=== PATIENT | male | born 1995 | race Caucasian/White ===

== ENCOUNTER 2019-12-01 11:47 | Emergency (ER) | payer BC, OTHER ==
[~2019-12-01] VITALS: Ht 187 cm; Wt 91.0 kg
--- NOTE | 2019-12-01 12:35 | ED Abdominal Pain ---
General Chief Complaint: Abdominal/GI Problems Stated Complaint: LOWER L ABD PAIN Source of Information: Patient Exam Limitations: No Limitations (MANINDER KERR) History of Present Illness Date Seen by Provider: Dec 01, 2019 Time Seen by Provider: 12:02 Initial Comments The patient also notices the pain is worse if she tries to lift his left leg get into a full vehicle. He had uneventful ride over in the car. No abdominal surgeries or trauma. (MANINDER KERR) Initial Comments Gilberto Bird is a 24 year old male who is being seen due to a chief complaint of left lower abdominal pain. He describes the pain beginning as a 2/10 cramp in his lower left abdomen on Saturday evening after eating at [employer]. The next morning he began having sharp pains in his lower left abdomen that are a 5/10 and brought on by activities such as climbing into a truck or being jostled in the road. At rest his pain is still 2/10. He was constipated for four days until yesterday when he took ex-lax and had a bowel movement, since then his symptoms are unchanged. Denies any fevers, chills, n/v, diarrhea. Timing/Duration: 4-5 Days Severity/Quality: Cramping (mild), Sharp (moderate) Location: LLQ Radiation: No Radiation Activities at Onset: None Modifying Factors: Improves With Movement Associated Symptoms: No Fever/Chills, No Nausea/Vomiting (EDEN BETTS MED STUDENT) Allergies and Home Medications Allergies Coded Allergies: No Known Drug Allergies (Unverified , 12/01/19) Home Medications No Active Prescriptions or Reported Meds Patient Home Medication List Home Medication List Reviewed: Yes (MANINDER KERR) Review of Systems Review of Systems Musculoskeletal: No back pain, No muscle stiffness Skin: No change in color, No pruritus, No rash (MANINDER KERR) Constitutional: No chills, No fever Gastrointestinal: Abdominal Pain; Denies Blood Streaked Stools; Constipated; Denies Diarrhea, Denies Nausea, Denies Poor Appetite, Denies Vomiting Genitourinary: Denies Frequency, Denies Pain (EDEN BETTS STUDENT) All Other Systems Reviewed Negative Unless Noted: Yes (MANINDER KERR) Past [id number] Hx Patient Social History Alcohol Use: Denies Use Recreational Drug Use: No (MANINDER KERR) Smoking Status: Never a Smoker Type Used: Smokeless Tobacco (chewing tobacco) (EDEN BETTS STUDENT) Physical Exam Vital Signs Capillary Refill : (MANINDER KERR) Height/Weight/BMI Height: '" Weight: lbs. oz. kg; BMI Method: Respiratory: lungs clear, normal breath sounds, no respiratory distress, no accessory muscle use Cardiovascular: normal peripheral pulses, regular rate, rhythm, no edema Peripheral Pulses: 2+ Radial Pulses (R), 2+ Radial Pulses (L) Gastrointestinal: normal bowel sounds, non tender, soft, no organomegaly, no pulsatile mass, other (negative for psoas sign, rebound tenderness McBurney's point, no sign. 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 Initial exam he has aseptic vital signs and an a non-surgical with normal bowel sounds. He did not require anything for his discomfort at rest. Colitis versus diverticulitis versus appendicitis. We'll obtain some labs which were largely unremarkable. After discussing this with him a suspect perhaps he has a viral colitis however he is able to easily pass stools. We've given him return precautions and instructed him to come back if Tylenol and Motrin does not control his pain 40/to have fever above 100.3, nausea vomiting or his symptoms persist for more than 7 days. Patient's in agreement with this plan. We did, benefits and alternatives to doing further imaging studies he has wisely declined the studies after a supported decision making process was implemented. (MANINDER KERR) Departure Impression Primary Impression: Abdominal pain Qualified Codes: R10.32 - Left lower quadrant pain Disposition: 01 HOME, SELF-CARE Condition: Stable Departure-Patient Inst. Decision time for Depature: 13:21 (MANINDER KERR) Patient Instructions: Severe Abdominal Pain, Adult (DC) Add. Discharge Instructions: Drink plenty of fluids and sports drinks over the next couple days. Tylenol 1000 g every 8 hours as necessary for pain. Ibuprofen 800 mg every 8 hours as necessary for pain. Return to the ER promptly if you experience nausea with vomiting, fever above 100.3 or intractable pain despite the above mentioned medications. You may also try Gas-X for bloating and pressure. MiraLAX 1 capful and 6-8 ounces of fluid up to 3 times a day as necessary to stay regular. Return to a doctor if your symptoms are not improving 7 days after they started or by Saturday this weekend. I have no suspicion that you have COVID-19 at this time. All discharge instructions reviewed with patient and/or family. Voiced understanding. Scripts No Active Prescriptions or Reported Meds Work/School Note: Work Release Form Date Seen in the Emergency Department: Dec 01, 2019 Return to Work: Dec 02, 2019 Restrictions: No Restrictions Other Restrictions Listed Below: Not under investigation for COVID-19. MANINDER KERR Dec 01, 2019 12:35 EDEN BETTS MED STUDENT Dec 01, 2019 12:43
[2019-12-01 12:42] LABS: BASOPHILS % (AUTO) 0 % (0-10); EOSINOPHILS # (AUTO) 0.1 10^3/uL (0.0-0.3); EOSINOPHILS % (AUTO) 1 % (0-10); HEMATOCRIT 44 % (40-54); LYMPHOCYTES # (AUTO) 2.1 X 10^3 (1.0-4.0); LYMPHOCYTES % (AUTO) 27 % (12-44); MEAN CORPUSCULAR HEMOGLOBIN 32 PG (25-34); MEAN CORPUSCULAR HGB CONC 36 G/DL (32-36); MEAN CORPUSCULAR VOLUME 88 FL (80-99); MEAN PLATELET VOLUME 10.8 FL (7.4-10.4); MONOCYTES # (AUTO) 0.8 X 10^3 (0.0-1.0); MONOCYTES % (AUTO) 11 % (0-12); NEUTROPHILS # (AUTO) 4.7 X 10^3 (1.8-7.8); NEUTROPHILS % (AUTO) 61 % (42-75); PLATELET COUNT 224 10^3/uL (130-400); RED CELL DISTRIBUTION WIDTH 11.4 % (10.0-14.5); WHITE BLOOD COUNT 7.7 10^3/uL (4.3-11.0)
[2019-12-01 12:58] LABS: BILIRUBIN,URINE NEGATIVE (NEGATIVE); CLARITY,URINE SL CLOUDY; COLOR,URINE YELLOW; GLUCOSE, URINE (UA) NEGATIVE (NEGATIVE); KETONES,URINE NEGATIVE (NEGATIVE); LEUKOCYTE ESTERASE ,URINE NEGATIVE (NEGATIVE); NITRITE,URINE NEGATIVE (NEGATIVE); PROTEIN,URINE NEGATIVE (NEGATIVE)
--- OUTSIDE RECORDS SUMMARY | 2019-12-01 13:02 | XMS REPORT | Continuity of Care Document ---
Author Organization Unknown Address Unknown Phone Unavailable Allergies There is no data. Medications There is no data. Problems There is no data. Procedures There is no data. Results There is no data. Encounters ACCT No. Visit Date/Time Discharge Status Pt. Type Provider Facility Loc./Unit Complaint [id number] 12/01/2019 11:51:[address] Emergency CIRILO CONNER, MANINDER Mclaughlin [facility] LOWER L ABD PAIN
[2019-12-01 13:08] LABS: ALANINE AMINOTRANSFERASE 15 U/L (0-55); ALBUMIN 4.8 GM/DL (3.2-4.5); ALKALINE PHOSPHATASE 64 U/L (40-136); BILIRUBIN,TOTAL 0.7 MG/DL (0.1-1.0); BUN/CREATININE RATIO 15; CALCIUM 9.7 MG/DL (8.5-10.1); CARBON DIOXIDE 26 MMOL/L (21-32); CHLORIDE 106 MMOL/L (98-107); CREATININE SERUM 1.25 MG/DL (0.60-1.30); GFR ESTIMATED > 60; GLUCOSE 97 MG/DL (70-105); LIPASE 15 U/L (8-78); POTASSIUM 4.3 MMOL/L (3.6-5.0); SODIUM 139 MMOL/L (135-145)
[2019-12-01 13:09] LABS: BACTERIA,URINE NEGATIVE /HPF; RBC,URINE 0-2 /HPF; SQUAMOUS EPITHELIAL CELL,UR RARE /HPF
[2019-12-01 13:31] VITALS: BP 150/87
== END 2019-12-01 13:30 | disposition home or self-care (01) ==
LOC: ER 11:51
DX: R10.32 Left lower quadrant pain (principal)
CPT/HCPCS: 36415; 80053; 81000; 83690; 85025